=== PATIENT | female | born 1950 | race Two or more races ===

== ENCOUNTER 2017-10-25 14:32 | Emergency (ER) | payer OTHER ==
[~2017-10-25] VITALS: Ht 162.6 cm; Wt 88.9 kg
[~2017-10-25 14:32] MED LIST: ADULT ASPIRIN81 MG; ALEVE-D SINUS1 EACH; GABAPENTIN800 MG; GLUMETZA1000 MG; HUMALOG100 U/ML SQ; LANTUS100 U/ML SQ; ORPH100T PO; PHENERGAN25 MG PO; SIMVASTATIN; SYNTHROID50 MCG
[2017-10-25] MEDS ORDERED: ATARAX50 MG PO (19:54)
[2017-10-25] MEDS ORDERED: ORPHENADRINE C100 MG PO (19:54)
[2017-10-25] MEDS ORDERED: KETO10TA2 PO (19:54)
== END 2017-10-25 19:58 | disposition home or self-care (01) ==
LOC: ER 14:32
DX: S33.5XXA Sprain of ligaments of lumbar spine, initial encounter (principal); S80.02XA Contusion of left knee, initial encounter; S80.01XA Contusion of right knee, initial encounter; S60.212A Contusion of left wrist, initial encounter; S60.211A Contusion of right wrist, initial encounter; S40.022A Contusion of left upper arm, initial encounter; S40.021A Contusion of right upper arm, initial encounter; W01.198A Fall on same level from slipping, tripping and stumbling with subsequent striking against other object, initial encounter; Y93.01 Activity, walking, marching and hiking; Y92.480 Sidewalk as the place of occurrence of the external cause; Y99.8 Other external cause status

== ENCOUNTER 2018-01-14 10:09 | Emergency (ER) | payer OTHER ==
[~2018-01-14] VITALS: Ht 162.6 cm; Wt 88.5 kg
[~2018-01-14 10:09] MED LIST changes: +ATARAX50 MG PO; +KETO10TA2 PO; +ORPHENADRINE C100 MG PO
== END 2018-01-14 14:34 | disposition home or self-care (01) ==
LOC: ER 10:09 → CPU-OBS 10:36 → ER 10:36
DX: I10 Essential (primary) hypertension (principal)

== ENCOUNTER 2018-06-21 15:23 | Emergency (ER) | payer OTHER ==
[~2018-06-21] VITALS: Ht 162.6 cm; Wt 88.5 kg
[2018-06-21] MEDS ORDERED: BRILINTA60 MG (16:23)
== END 2018-06-21 20:38 | disposition home or self-care (01) ==
LOC: ER 15:23
DX: E11.621 Type 2 diabetes mellitus with foot ulcer (principal); L97.518 Non-pressure chronic ulcer of other part of right foot with other specified severity; L08.89 Other specified local infections of the skin and subcutaneous tissue; B96.89 Other specified bacterial agents as the cause of diseases classified elsewhere; B95.61 Methicillin susceptible Staphylococcus aureus infection as the cause of diseases classified elsewhere; B95.1 Streptococcus, group B, as the cause of diseases classified elsewhere

== ENCOUNTER 2018-11-22 05:18 | Inpatient (IN) | payer OTHER ==
[~2018-11-22] VITALS: Ht 162.6 cm; Wt 86.2 kg
[~2018-11-22 05:18] MED LIST changes: +BRILINTA60 MG
[2018-11-22] MEDS ORDERED: PLAVIX75 MG (05:30)
[2018-11-25] MEDS ORDERED: ZOCOR5 MG (14:57)
== END 2018-12-11 11:23 | disposition home or self-care (01) | DRG 987 ==
LOC: ER 05:18 → ICU-2 09:31 → ICU 11-28 14:57 → MEDJ 12-02 21:23
PROVIDERS: ADMIT Internal Medicine
PROC: B246ZZZ Ultrasonography of Right and Left Heart (ICD-10-PCS; 2018-11-22)
PROC: 0T9B70Z Drainage of Bladder with Drainage Device, Via Natural or Artificial Opening (ICD-10-PCS; 2018-11-22)
PROC: 3E0F7GC Introduction of Other Therapeutic Substance into Respiratory Tract, Via Natural or Artificial Opening (ICD-10-PCS; 2018-11-24)
PROC: BW40ZZZ Ultrasonography of Abdomen (ICD-10-PCS; 2018-11-25)
PROC: BW4GZZZ Ultrasonography of Pelvic Region (ICD-10-PCS; 2018-11-25)
PROC: BW24ZZZ Computerized Tomography (CT Scan) of Chest and Abdomen (ICD-10-PCS; 2018-11-26)
PROC: BW21ZZZ Computerized Tomography (CT Scan) of Abdomen and Pelvis (ICD-10-PCS; 2018-11-26)
PROC: 0T778DZ Dilation of Left Ureter with Intraluminal Device, Via Natural or Artificial Opening Endoscopic (ICD-10-PCS; principal; 2018-11-27)
PROC: BT1DZZZ Fluoroscopy of Right Kidney, Ureter and Bladder (ICD-10-PCS; 2018-11-27)
PROC: 4A033R1 Measurement of Arterial Saturation, Peripheral, Percutaneous Approach (ICD-10-PCS; 2018-11-28)
PROC: 4A12X4Z Monitoring of Cardiac Electrical Activity, External Approach (ICD-10-PCS; 2018-12-01)
PROC: 8E0ZXY6 Isolation (ICD-10-PCS; 2018-12-01)
DX: I21.4 Non-ST elevation (NSTEMI) myocardial infarction (principal); J16.8 Pneumonia due to other specified infectious organisms; R65.21 Severe sepsis with septic shock; I50.43 Acute on chronic combined systolic (congestive) and diastolic (congestive) heart failure; A41.89 Other specified sepsis; N17.8 Other acute kidney failure; I80.11 Phlebitis and thrombophlebitis of right femoral vein; L97.418 Non-pressure chronic ulcer of right heel and midfoot with other specified severity; L97.518 Non-pressure chronic ulcer of other part of right foot with other specified severity; M86.171 Other acute osteomyelitis, right ankle and foot; I13.0 Hypertensive heart and chronic kidney disease with heart failure and stage 1 through stage 4 chronic kidney disease, or unspecified chronic kidney disease; N13.0 Hydronephrosis with ureteropelvic junction obstruction; E87.2 Acidosis; N39.0 Urinary tract infection, site not specified; A04.72 Enterocolitis due to Clostridium difficile, not specified as recurrent; B37.89 Other sites of candidiasis; E11.65 Type 2 diabetes mellitus with hyperglycemia; Z79.4 Long term (current) use of insulin; Z88.0 Allergy status to penicillin; I11.0 Hypertensive heart disease with heart failure; R09.02 Hypoxemia; E11.51 Type 2 diabetes mellitus with diabetic peripheral angiopathy without gangrene; E03.8 Other specified hypothyroidism; E11.22 Type 2 diabetes mellitus with diabetic chronic kidney disease; I12.9 Hypertensive chronic kidney disease with stage 1 through stage 4 chronic kidney disease, or unspecified chronic kidney disease; N18.2 Chronic kidney disease, stage 2 (mild); E11.621 Type 2 diabetes mellitus with foot ulcer; E11.43 Type 2 diabetes mellitus with diabetic autonomic (poly)neuropathy; E86.0 Dehydration; E87.8 Other disorders of electrolyte and fluid balance, not elsewhere classified; Z98.61 Coronary angioplasty status; B96.0 Mycoplasma pneumoniae [M. pneumoniae] as the cause of diseases classified elsewhere; Z99.89 Dependence on other enabling machines and devices; E88.09 Other disorders of plasma-protein metabolism, not elsewhere classified; B96.4 Proteus (mirabilis) (morganii) as the cause of diseases classified elsewhere; B96.5 Pseudomonas (aeruginosa) (mallei) (pseudomallei) as the cause of diseases classified elsewhere

== ENCOUNTER 2019-01-01 06:48 | Outpatient (CLI) | payer OTHER ==
[~2019-01-01 06:48] MED LIST changes: +PLAVIX75 MG; +ZOCOR5 MG
== END 2019-01-01 06:53 | disposition home or self-care (01) ==
LOC: LAB 06:48
DX: N30.00 Acute cystitis without hematuria (principal); B96.1 Klebsiella pneumoniae [K. pneumoniae] as the cause of diseases classified elsewhere; N17.8 Other acute kidney failure

== ENCOUNTER 2019-01-01 07:14 | Outpatient (CLI) | payer OTHER | END 2019-01-01 07:24 | disposition home or self-care (01) | LOC: TOM 07:14 | DX: N13.2 Hydronephrosis with renal and ureteral calculous obstruction (principal) ==

== ENCOUNTER 2019-01-16 07:02 | Outpatient (CLI) | payer OTHER ==
[2019-01-16] MEDS ORDERED: AVAPRO75 MG (16:37)
[2019-01-16] MEDS ORDERED: TRADJENTA5 MG (16:38)
[2019-01-16] MEDS ORDERED: PNEU16DI2 (16:39)
[2019-01-16] MEDS ORDERED: FORTAMET1000 MG (16:39)
== END 2019-01-16 07:07 | disposition home or self-care (01) ==
LOC: LAB 07:02
DX: N30.00 Acute cystitis without hematuria (principal); B96.89 Other specified bacterial agents as the cause of diseases classified elsewhere

== ENCOUNTER → 2019-01-22 | Day surgery (SDC) | payer OTHER ==
[~2019-01-22] MED LIST changes: +AVAPRO75 MG; +FORTAMET1000 MG; +PNEU16DI2; +TRADJENTA5 MG
== END | disposition home or self-care (01) ==
LOC: CIR.AMB 05:36
DX: T83.112A Breakdown (mechanical) of indwelling ureteral stent, initial encounter (principal)

== ENCOUNTER 2020-07-23 12:37 | Inpatient (IN) | payer OTHER ==
[~2020-07-23] VITALS: Ht 162.6 cm; Wt 83.9 kg
--- NOTE | 2020-07-23 12:57 | NUR ---
PTE REFIERE CELULITIS EN PINEDA LANG ES REFERIDA POR DR ELIJAH KUMAR SE SAHRA S/V YSE UBIAC EN AREA DE OBSERVACION
--- NOTE | 2020-07-23 15:56 | NUR ---
EVALUA PTE. SE ORIENTA A PTE SOBRE TX MEDICO. PTE REFIERE COMPRENDER. SE COLECTAN MUESTRAS DE LABORATORIO BAJO MEDIDAS ASEPTICAS Y SE ENVIAN AL LABORATORIO. SE NOTIFICAN KVNG X.
== END 2020-07-28 19:01 | disposition home or self-care (01) | DRG 74 ==
LOC: ER 12:37 → SEC-K 21:02 → SURG 21:02 → MEDJ 07-27 19:25 → SURG 07-27 20:42 → MEDJ 07-28 12:06 → MEDI 07-28 12:06
PROVIDERS: ADMIT Internal Medicine; ATTEND Internal Medicine
DX: E11.42 Type 2 diabetes mellitus with diabetic polyneuropathy (principal); L03.115 Cellulitis of right lower limb; I73.89 Other specified peripheral vascular diseases; I13.10 Hypertensive heart and chronic kidney disease without heart failure, with stage 1 through stage 4 chronic kidney disease, or unspecified chronic kidney disease; N18.2 Chronic kidney disease, stage 2 (mild); B95.7 Other staphylococcus as the cause of diseases classified elsewhere; Z20.828 Contact with and (suspected) exposure to other viral communicable diseases

== ENCOUNTER 2021-03-25 12:42 | Emergency (ER) | payer OTHER ==
[~2021-03-25] VITALS: Ht 162.6 cm; Wt 74.8 kg
[2021-03-25] MEDS ORDERED: KETO10TA2 PO (14:56)
== END 2021-03-25 15:00 | disposition home or self-care (01) ==
LOC: ER 12:42
DX: R07.89 Other chest pain (principal); N64.4 Mastodynia; S20.212S Contusion of left front wall of thorax, sequela; W18.39XS Other fall on same level, sequela

== ENCOUNTER 2021-04-09 10:13 | Emergency (ER) | payer OTHER ==
[~2021-04-09] VITALS: Ht 165.1 cm; Wt 86.2 kg
== END 2021-04-09 16:16 | disposition home or self-care (01) ==
LOC: ER 10:13
DX: S92.351A Displaced fracture of fifth metatarsal bone, right foot, initial encounter for closed fracture (principal); S90.111A Contusion of right great toe without damage to nail, initial encounter; N39.0 Urinary tract infection, site not specified; W22.8XXA Striking against or struck by other objects, initial encounter; Y93.89 Activity, other specified; Y92.89 Other specified places as the place of occurrence of the external cause; Y99.8 Other external cause status

== ENCOUNTER 2021-04-11 09:25 | Inpatient (IN) | payer OTHER ==
[~2021-04-11] VITALS: Ht 162.6 cm; Wt 86.2 kg
[2021-04-11] MEDS ORDERED: HYDROCHLOROTHIA25 MG PO (09:46)
--- NOTE | 2021-04-11 09:51 | NUR ---
SE RECIBE PTE. ALERTA Y ORIENTADA. PTE VIENE CON REFERIDO DE DR. NAVA KUMAR POR ULCERA EN DEDO PULGAR DEL PIES RT.
--- NOTE | 2021-04-11 10:13 | NUR ---
EVALUADA POR DR. WARNER. A. GRAHAM ORIENTA A PTE. SOBRE TRATAMIENTO. COLECTA MUESTRAS DE KELLY Y CANALIZA A PTE. CON MEDIDAS ASEPTICAS. SE LE ENTREGA ENVASE DE MUESTRA DE ORINA.
[2021-04-11] MEDS ORDERED: PAROXETINE HCL10 MG (16:02)
[2021-04-11] MEDS ORDERED: CIPROFLOXACIN500 MG (16:02)
[2021-04-11] MEDS ORDERED: VALSARTAN80 MG (16:02)
[2021-04-11] MEDS ORDERED: CARVEDILOL3.125 M1 (16:03)
[2021-04-11] MEDS ORDERED: NOVOLIN R100 UNIT/1 (16:03)
[2021-04-11] MEDS ORDERED: ATORVASTATIN CA40 MG (16:03)
[2021-04-11] MEDS ORDERED: GEMFIBROZIL600 MG (16:03)
== END 2021-04-21 16:52 | disposition home or self-care (01) | DRG 300 ==
LOC: ER 09:25 → MEDI 13:56
PROVIDERS: ADMIT Internal Medicine; ATTEND Internal Medicine
PROC: BQ3LZZZ Magnetic Resonance Imaging (MRI) of Right Foot (ICD-10-PCS; 2021-04-12)
PROC: 0HDMXZZ Extraction of Right Foot Skin, External Approach (ICD-10-PCS; principal; 2021-04-13)
PROC: B54BZZZ Ultrasonography of Right Lower Extremity Veins (ICD-10-PCS; 2021-04-16)
DX: E11.52 Type 2 diabetes mellitus with diabetic peripheral angiopathy with gangrene (principal); I96 Gangrene, not elsewhere classified; E11.628 Type 2 diabetes mellitus with other skin complications; L97.514 Non-pressure chronic ulcer of other part of right foot with necrosis of bone; E11.621 Type 2 diabetes mellitus with foot ulcer; L03.031 Cellulitis of right toe; B95.1 Streptococcus, group B, as the cause of diseases classified elsewhere; E78.5 Hyperlipidemia, unspecified; E03.9 Hypothyroidism, unspecified; E66.9 Obesity, unspecified; I11.9 Hypertensive heart disease without heart failure; Z79.4 Long term (current) use of insulin; Z20.822 Contact with and (suspected) exposure to COVID-19
CPT/HCPCS: 73221

== ENCOUNTER 2021-06-16 11:56 | Emergency (ER) | payer OTHER ==
[~2021-06-16] VITALS: Ht 162.6 cm; Wt 86.2 kg
[~2021-06-16 11:56] MED LIST changes: +ATORVASTATIN CA40 MG; +CARVEDILOL3.125 M1; +CIPROFLOXACIN500 MG; +GEMFIBROZIL600 MG; +HYDROCHLOROTHIA25 MG PO; +NOVOLIN R100 UNIT/1; +PAROXETINE HCL10 MG; +VALSARTAN80 MG
[2021-06-16] MEDS ORDERED: GEN (12:22)
== END 2021-06-16 16:39 | disposition home or self-care (01) ==
LOC: ER 11:56
DX: M25.561 Pain in right knee (principal)

== ENCOUNTER 2021-06-28 12:01 | Emergency (ER) | payer OTHER ==
[~2021-06-28] VITALS: Ht 165.1 cm; Wt 115.7 kg
[~2021-06-28 12:01] MED LIST changes: +GEN
== END 2021-06-28 15:30 | disposition home or self-care (01) ==
LOC: ER 12:01
DX: S43.014A Anterior dislocation of right humerus, initial encounter (principal); W18.39XA Other fall on same level, initial encounter; Y93.89 Activity, other specified; Y92.89 Other specified places as the place of occurrence of the external cause; Y99.8 Other external cause status

== ENCOUNTER 2022-03-01 09:11 | Emergency (ER) | payer OTHER ==
[~2022-03-01] VITALS: Ht 162.6 cm; Wt 81.6 kg
[2022-03-01] MEDS ORDERED: KETO10TA2 PO (13:51)
[2022-03-01] MEDS ORDERED: NORFLEX100MG PO (13:51)
== END 2022-03-01 13:53 | disposition home or self-care (01) ==
LOC: ER 09:11
DX: M54.2 Cervicalgia (principal); M54.50 Low back pain, unspecified; Z88.0 Allergy status to penicillin; I10 Essential (primary) hypertension; E03.9 Hypothyroidism, unspecified; E11.9 Type 2 diabetes mellitus without complications; Z79.4 Long term (current) use of insulin; E78.00 Pure hypercholesterolemia, unspecified; M79.642 Pain in left hand

== ENCOUNTER 2024-01-24 12:13 | Emergency (ER) | payer OTHER ==
[~2024-01-24] VITALS: Ht 162.6 cm; Wt 83.5 kg
[~2024-01-24 12:13] MED LIST changes: +NORFLEX100MG PO
[2024-01-24] MEDS ORDERED: FAMOTIDINE20 MG PO (12:32)
[2024-01-24] MEDS ORDERED: PLAVIX75 MG PO (12:37)
[2024-01-24] MEDS ORDERED: HYDRALAZINE HC100 MG PO (12:37)
[2024-01-24] MEDS ORDERED: ONDANSETRON HCL 2 MG/ML VIAL IV ONE (14:00)
[2024-01-24] MEDS ORDERED: FAMOTIDINE/PF 20 MG/2 ML VIAL IV PUSH ONE (14:00)
[2024-01-24 14:31] LABS: HEMATOCRIT 35.8 % (36.0-45.00); HEMOGLOBIN 11.8 g/dL (12.0-15.00); MEAN CELL VOLUME 87.1 fL (80.00-100.00); MEAN CORPUSCULAR HEMOGLOBIN 28.8 pg (27.00-32.0); PLATELET COUNT 369 K/uL (150-450); RED BLOOD COUNT 4.11 M/uL (4.00-6.00); RED CELL DISTRIBUTION WIDTH 13.8 % (11.5-14.5)
[2024-01-24 14:57] LABS: ALBUMIN 2.8 gm/dL (3.4-5.0); BILIRUBIN TOTAL 0.36 mg/dL (0.3-1.2); CALCIUM 8.9 mg/dL (8.5-10.1); CREATININE SERUM 1.02 mg/dL (0.55-1.02); GFR 52.97; GLOBULINA 4.6 G/DL (2.4-3.5); POTASSIUM 4.14 mEq/L (3.5-5.1); TOTAL PROTEIN 7.4 gm/dL (6.4-8.2)
[2024-01-24] MEDS ORDERED: INTESTINEX680 M1 PO (18:42)
[2024-01-24] MEDS ORDERED: PEPCID AC20 MG PO (18:42)
== END 2024-01-24 18:56 | disposition home or self-care (01) ==
LOC: ER 12:13
PROVIDERS: Emergency Medicine
DX: K29.70 Gastritis, unspecified, without bleeding (principal); E11.9 Type 2 diabetes mellitus without complications; Z79.84 Long term (current) use of oral hypoglycemic drugs; Z86.73 Personal history of transient ischemic attack (TIA), and cerebral infarction without residual deficits; Z74.01 Bed confinement status; Z88.0 Allergy status to penicillin
CPT/HCPCS: 36415; 96365; 99283; J2405; J3490

== ENCOUNTER 2024-06-18 14:27 | Emergency (ER) | payer OTHER ==
[~2024-06-18] VITALS: Ht 152.4 cm; Wt 81.6 kg
[~2024-06-18 14:27] MED LIST changes: +FAMOTIDINE20 MG PO; +HYDRALAZINE HC100 MG PO; +INTESTINEX680 M1 PO; +PEPCID AC20 MG PO; +PLAVIX75 MG PO
[2024-06-18] MEDS ORDERED: FAMOTIDINE/PF 20 MG in 0.9 % SODIUM CHLORIDE 8 ML IV PUSH STA (16:19)
[2024-06-18] MEDS ORDERED: FAMOTIDINE/PF 20 MG/2 ML VIAL ONE (16:26)
[2024-06-18] MEDS ORDERED: KETOROLAC TROMETHAMINE 30 MG VIAL ONE (16:30)
[2024-06-18] MEDS ORDERED: HYDROGEN PEROXIDE 473 ML BOTTLE TOP ONE (16:44)
[2024-06-18 17:06] LABS: HEMATOCRIT 39.9 % (36.0-45.00); HEMOGLOBIN 13.1 g/dL (12.0-15.00); MEAN CELL VOLUME 86.1 fL (80.00-100.00); MEAN CORPUSCULAR HEMOGLOBIN 28.3 pg (27.00-32.0); MEAN CORPUSCULAR HGB CONC 32.9 g/dl (32.0-36.0); PLATELET COUNT 411 K/uL (150-450); RED BLOOD COUNT 4.63 M/uL (4.00-6.00); RED CELL DISTRIBUTION WIDTH 15.2 % (11.5-14.5)
== END 2024-06-18 19:17 | disposition home or self-care (01) ==
LOC: ER 14:27
PROVIDERS: General Practice
DX: S09.8XXA Other specified injuries of head, initial encounter (principal); W18.39XA Other fall on same level, initial encounter; Y93.F1 Activity, caregiving, bathing; Y92.012 Bathroom of single-family (private) house as the place of occurrence of the external cause
CPT/HCPCS: 36415; 70450; 99284; J3490

== ENCOUNTER 2024-07-26 13:04 | Emergency (ER) | payer OTHER ==
[~2024-07-26] VITALS: Ht 162.6 cm; Wt 81.6 kg
[2024-07-26] MEDS ORDERED: 0.9 % SODIUM CHLORIDE 1,000 ML IV ONE (14:15)
[2024-07-26] MEDS ORDERED: INSULIN REGULAR, HUMAN 1,000 UNIT/10 ML UNITS SUBCUTANEO ONE (14:15)
[2024-07-26] MEDS ORDERED: FAMOtidine 10 MG/ML (4ML VIAL) IV ONE (14:15)
[2024-07-26] MEDS ORDERED: KETOROLAC TROMETHAMINE 15 MG VIAL IU ONE (14:15)
[2024-07-26 15:52] LABS: HEMATOCRIT 40.7 % (36.0-45.00); HEMOGLOBIN 13.6 g/dL (12.0-15.00); MEAN CELL VOLUME 86.9 fL (80.00-100.00); MEAN CORPUSCULAR HEMOGLOBIN 29.2 pg (27.00-32.0); MEAN CORPUSCULAR HGB CONC 33.5 g/dl (32.0-36.0); PLATELET COUNT 408 K/uL (150-450); RED BLOOD COUNT 4.68 M/uL (4.00-6.00)
[2024-07-26 16:28] LABS: ALBUMIN 3.2 gm/dL (3.4-5.0); BILIRUBIN TOTAL 0.32 mg/dL (0.3-1.2); CALCIUM 9.5 mg/dL (8.5-10.1); CREATININE SERUM 1.55 mg/dL (0.55-1.02); GFR 32.68; GLOBULINA 4.4 G/DL (2.4-3.5); POTASSIUM 4.36 mEq/L (3.5-5.1); TOTAL PROTEIN 7.6 gm/dL (6.4-8.2)
[2024-07-26 16:46] LABS: PH,URINE 5.5 (5.0-8.0); URINE APPEARANCE Turbid; URINE BILIRRUBIN Negative (NEGATIVE); URINE BLOOD Small; URINE COLOR Yellow; URINE KETONE Negative (NEGATIVE); URINE LEUKOCYTE Moderate; URINE NITRATE Negative; URINE PROTEIN Trace (NEGATIVE); URINE UROBILINOGEN 0.2 E.U./dl
[2024-07-26 16:47] LABS: INR 0.97; PROTHROMBIN TIME 10.6 SECONDS (9.0-11.5)
[2024-07-26 16:50] LABS: URINE BACTERIA 2523.7 uL (0.0-1933)
[2024-07-26 17:43] LABS: URINE CAST 0.91 uL (0.0-1.40); URINE GLUCOSE >=1000 MG/DL (NEGATIVE); URINE WBC > 5548.3 uL (0.0-23.2)
[2024-07-26 17:48] LABS: URINE YEAST MODERATE /hpf
[2024-07-26] MEDS ORDERED: CIPROFLOXACIN IN 5 % DEXTROSE 400 MG/200 ML PIGGYBAG IV ONE (18:15)
[2024-07-26] MEDS ORDERED: ACETAMINOPHEN 325 MG TABLET PO STA (18:17)
[2024-07-26] MEDS ORDERED: ACETAMINOPHEN 500 MG GEL..CAP PO ONE (18:30)
== END 2024-07-26 19:59 | disposition home or self-care (01) ==
LOC: ER 13:06
PROVIDERS: General Practice
DX: N39.0 Urinary tract infection, site not specified (principal); B96.89 Other specified bacterial agents as the cause of diseases classified elsewhere; I69.954 Hemiplegia and hemiparesis following unspecified cerebrovascular disease affecting left non-dominant side; E11.9 Type 2 diabetes mellitus without complications; Z79.4 Long term (current) use of insulin; Z79.84 Long term (current) use of oral hypoglycemic drugs; I10 Essential (primary) hypertension; E03.9 Hypothyroidism, unspecified; Z88.0 Allergy status to penicillin